=== PATIENT | male | born 1950 | race Native Hawaiian/Other Pacific Islander ===

== ENCOUNTER 2020-09-13 13:30 | Outpatient (CLI) | payer OTHER ==
[2020-09-13 13:48] LABS: PLATELET COUNT 186 K/uL (142-355)
[2020-09-13 13:59] LABS: POTASSIUM 4.8 mmol/L (3.6-5.2)
== END 2020-09-13 23:26 | disposition home or self-care (01) ==
LOC: LAB 13:30
PROVIDERS: Nurse Practitioner Family
DX: N18.9 Chronic kidney disease, unspecified (principal)
CPT/HCPCS: 80053; 85027

== ENCOUNTER 2020-10-17 12:57 | Outpatient (CLI) | payer OTHER ==
[2020-10-17 13:14] LABS: PLATELET COUNT 203 K/uL (142-355)
[2020-10-17 13:34] LABS: POTASSIUM 4.6 mmol/L (3.6-5.2)
== END 2020-10-17 22:30 | disposition home or self-care (01) ==
LOC: LAB 12:57
PROVIDERS: ATTEND Nurse Practitioner Family
DX: Z00.00 Encounter for general adult medical examination without abnormal findings (principal); E11.9 Type 2 diabetes mellitus without complications; I10 Essential (primary) hypertension; E78.49 Other hyperlipidemia; E03.8 Other specified hypothyroidism; K21.9 Gastro-esophageal reflux disease without esophagitis; Z79.899 Other long term (current) drug therapy; E53.8 Deficiency of other specified B group vitamins; E55.9 Vitamin D deficiency, unspecified; M10.9 Gout, unspecified
CPT/HCPCS: 80053; 80061; 82306; 82607; 83036; 84153; 84403; 84439; 84443; 85027

== ENCOUNTER 2021-04-12 12:23 | Outpatient (CLI) | payer OTHER ==
[2021-04-12 12:50] LABS: PLATELET COUNT 199 K/uL (142-355)
[2021-04-12 13:19] LABS: POTASSIUM 4.9 mmol/L (3.6-5.2)
== END 2021-04-12 22:00 | disposition home or self-care (01) ==
LOC: LAB 12:23
PROVIDERS: ATTEND Nurse Practitioner Family
DX: Z00.00 Encounter for general adult medical examination without abnormal findings (principal); G47.00 Insomnia, unspecified; M19.90 Unspecified osteoarthritis, unspecified site; Z79.899 Other long term (current) drug therapy; R53.83 Other fatigue; R53.81 Other malaise; E11.9 Type 2 diabetes mellitus without complications; I10 Essential (primary) hypertension; E03.8 Other specified hypothyroidism; M10.9 Gout, unspecified; E55.9 Vitamin D deficiency, unspecified; E53.8 Deficiency of other specified B group vitamins
CPT/HCPCS: 80053; 80061; 82306; 82607; 83036; 84439; 84443; 85027